=== PATIENT | female | born 1985 | race Caucasian/White ===

== ENCOUNTER 2017-05-04 11:09 | Day surgery (SDC) | payer OTHER ==
[~2017-05-04] VITALS: Ht 172.7 cm; Wt 62.8 kg
[2017-05-04] MEDS ORDERED: OMEPRAZOLE (11:47)
[2017-05-04 11:49] VITALS: Ht 172.7 cm; Wt 62.8 kg
[2017-05-04 12:02] VITALS: BP 109/71; PULSE 64; RESP 22
[2017-05-04] MEDS ORDERED: PROPOFOL 40 ML ONE (12:55)
[2017-05-04] MEDS ORDERED: LIDOCAINE 2% (SDV) 5 ML INJ ONE (12:55)
--- NOTE | 2017-05-04 13:10 | OPPN ---
Date/Time of Note Date/Time of Note DATE: 05/04/17 TIME: 13:08 Operative Report Preoperative Diagnosis Abdominal pain and chronic heartburn Postoperative Diagnosis Gastroesophageal reflux disease Gastritis with erosions Operation/Procedure Performed Esophagogastroduodenoscopy and biopsy Anesthesia Type: MAC Estimated blood loss: none Transfusion Required: no Specimens Gastric mucosal biopsy Grafts/Implants: none Complications: no LIBRADO JIM MD May 04, 2017 13:09
--- NOTE | 2017-05-04 13:31 | GILP ---
DATE OF PROCEDURE: 05/04/2017 PROCEDURE PERFORMED: Esophagogastroduodenoscopy and biopsy. PREOPERATIVE DIAGNOSES: 1. Abdominal pain. 2. Chronic heartburn. POSTOPERATIVE DIAGNOSES: 1. Gastroesophageal reflux disease. 2. Gastritis with erosions. 3. Gastric mucosal biopsies were taken for Helicobacter pylori test. INDICATIONS FOR PROCEDURE: Ms. Lucila Woodson is a 31-year-old female patient who had chronic heartburn and upper abdominal pain not responding to therapy. She was scheduled for endoscopic examination for further evaluation. The procedure and possible complications were well explained to the patient. She understood and consented to the procedure. DESCRIPTION OF PROCEDURE: Under influence of anesthesia, the gastroscope was carefully introduced into the esophagus and under direct vision, it was advanced to the stomach, into the pylorus, into the duodenal bulb, and descending duodenum. FINDINGS: Esophagus: The patient had gastroesophageal reflux disease. Stomach: She had gastritis with erosions. Gastric mucosal biopsies were taken for Helicobacter pylori test. Duodenum was normal. She tolerated the procedure very well. There is no complications from the procedure. At the end of procedure, she was awake with stable vital signs and she was discharged home in the care of her family. IMPRESSION: Please see postop diagnoses. PLAN: 1. Continue omeprazole. 2. Add Zantac 300 mg p.o. at bedtime. 3. Await H pylori test report. Dictated By: MD SIOMARA Hallamn/kvng/neil /Document#: [id number] CC: Aleksandra Garcia MD;*End*
[2017-05-04 13:40] VITALS: BP 100/68; PULSE 64; RESP 22
== END 2017-05-04 17:16 | disposition home or self-care (01) ==
LOC: EDSEX 11:09 → GIL 11:09
PROVIDERS: ATTEND Internal Medicine Gastroenterology
DX: K21.9 Gastro-esophageal reflux disease without esophagitis (principal); K29.60 Other gastritis without bleeding
CPT/HCPCS: 43239; 84703; 87081; Z7610